=== PATIENT | male | born 1935 | race Hispanic/Latino ===

== ENCOUNTER 2017-12-26 16:40 | Emergency (ER) | payer MEDICARE ==
--- NOTE | 2017-12-26 17:12 | C.PDOC ---
History Of Present Illness <Christina Early - Last Filed: 12/26/17 19:08> <Hayden Maher - Last Filed: 12/26/17 21:15> 82 y/o male with Hx of HTN and cholesterol presents to ED for complaints of right lower abdominal pain that began 4 days ago. Denies nausea, vomiting, diarrhea, dysuria, or allergies to any medications or food. Patient also states he is on blood thinner medication(eliquis). PMD: Israel Carlson (Christina Early) History Per: Patient History/Exam Limitations: no limitations Onset/Duration Of Symptoms: Days (4) Current Symptoms Are (Timing): Still Present Location Of Pain/Discomfort: RLQ Radiation Of Pain To:: None Quality Of Discomfort: "Pain" Associated Symptoms: denies: Fever, Chills, Nausea, Vomiting, Diarrhea, Back Pain, Chest Pain, Urinary Symptoms Exacerbating Factors: None Alleviating Factors: None Last Bowel Movement: Today Recent travel outside of the [place]: No <Christina Early - Last Filed: 12/26/17 19:08> <Hayden Maher - Last Filed: 12/26/17 21:15> Time Seen by Provider: 12/26/17 17:05 Chief Complaint (Nursing): Abdominal Pain Past Medical History Reviewed: Historical Data, Nursing Documentation, Vital Signs - Medical History PMH: HTN, Hypercholesterolemia Family History: States: No Known Family Hx - Social History Hx Alcohol Use: No Hx Substance Use: No - Immunization History Hx Tetanus Toxoid Vaccination: No Hx Influenza Vaccination: Yes Hx Pneumococcal Vaccination: Yes <Christina Early - Last Filed: 12/26/17 19:08> Vital Signs: Last Vital Signs Temp 98.0 F 12/26/17 20:02 Pulse 86 12/26/17 20:02 Resp 19 12/26/17 20:02 BP 155/89 H 12/26/17 20:02 Pulse Ox 95 12/26/17 20:02 Review Of Systems Constitutional: Negative for: Fever, Chills Gastrointestinal: Positive for: Abdominal Pain (RLQ). Negative for: Nausea, Vomiting, Diarrhea Genitourinary: Negative for: Dysuria Skin: Negative for: Rash Neurological: Negative for: Weakness, Numbness <Christina Early - Last Filed: 12/26/17 19:08> Physical Exam - Physical Exam Appears: Non-toxic, No Acute Distress Skin: Warm, Dry Head: Atraumatic, Normacephalic Eye(s): bilateral: Normal Inspection, PERRL, EOMI Oral Mucosa: Moist Neck: Supple Chest: Symmetrical, No Tenderness Cardiovascular: Rhythm Regular, No Murmur Respiratory: Normal Breath Sounds, No Decreased Breath Sounds, No Rales, No Rhonchi, No Wheezing Gastrointestinal/Abdominal: Soft, Tenderness (RLQ), No Guarding, Rebound Extremity: Normal ROM, No Deformity Extremity: Bilateral: Atraumatic, Normal Color And Temperature, Normal ROM Pulses: Left Radial: Normal, Right Radial: Normal Neurological/Psych: Oriented x3 (Awake and alert), Normal Speech (Speaking in full sentences ), Other (No focal deficits ) Gait: Steady <Christina Early - Last Filed: 12/26/17 19:08> ED Course And Treatment - Laboratory Results Result Diagrams: 12/26/17 17:55 12/26/17 17:55 O2 Sat by Pulse Oximetry: 97 (RA) Pulse Ox Interpretation: Normal Progress Note: Administered Morphine and IV fluids. Ordered blood work and CT abdomen/Pelvis. <Christina Early - Last Filed: 12/26/17 19:08> - Laboratory Results Result Diagrams: 12/26/17 17:55 12/26/17 17:55 Pulse Ox Interpretation: Normal Reevaluation Time: 21:12 Reassessment Condition: Improved <Hayden Maher - Last Filed: 12/26/17 21:15> Disposition - Disposition Disposition Time: 19:09 <Christina Early - Last Filed: 12/26/17 19:08> Counseled Patient/Family Regarding: Studies Performed, Diagnosis, Need For Followup, Rx Given <Hayden Maher - Last Filed: 12/26/17 21:15> - Disposition Referrals: Israel Ny MD [Staff Provider] - Disposition: HOME/ ROUTINE Condition: STABLE Additional Instructions: Please return if symptoms recur Prescriptions: Metronidazole [Flagyl] 500 mg PO TID #21 tablet Instructions: Acute Abdomen (Belly Pain), Adult (DC), Diverticulosis (DC), Hiatal Hernia (DC) Forms: [employer] (Persian) - Clinical Impression Clinical Impression: Abdominal pain, Epiploic appendagitis, Diverticulosis, Esophageal hiatal hernia - PA / FIELD [employer]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 - Scribe Statement The provider has reviewed the documentation as recorded by the Scribe <Christina Early - Last Filed: 12/26/17 19:08> <Hayden Maher - Last Filed: 12/26/17 21:15> - Scribe Statement Jose Diggs All medical record entries made by the Scribe were at my direction and personally dictated by me. I have reviewed the chart and agree that the record accurately reflects my personal performance of the history, physical exam, medical decision making, and the department course for this patient. I have also personally directed, reviewed, and agree with the discharge instructions and disposition. (Christina Early) Physician Patient Turnover Patient Signed Over To: Hayden Maher Handoff Comments: CT abd pelvis <Christina Early - Last Filed: 12/26/17 19:08>
[2017-12-26] MEDS ORDERED: Sodium Chloride 0.9% 500 ML IV STA (17:30)
[2017-12-26] MEDS ORDERED: Iohexol 240 (50 ml) PO STA (17:30)
[2017-12-26] MEDS ORDERED: Sodium Chloride 0.9% 1,000 ML ONE (17:45)
[2017-12-26] MEDS ORDERED: Iohexol 240 (50 ml) ONE (17:58)
[2017-12-26 18:01] LABS: BASO # 0.1 K/uL (0.0-0.2); BASO % 1.1 % (0.0-2.0); EOS # 0.1 K/uL (0.0-0.7); HEMOGLOBIN 14.9 g/dL (12.0-18.0); LYMPH # 0.8 K/uL (1.0-4.3); LYMPH % 8.4 % (20.0-40.0); MEAN CORPUSCULAR HEMOGLOBIN 30.9 pg (27.0-31.0); MEAN CORPUSCULAR HGB CONC 35.1 g/dL (33.0-37.0); MONO # 0.7 K/uL (0.0-0.8); MONO % 7.6 % (0.0-10.0); NEUT # 7.6 K/uL (1.8-7.0); NEUT % 81.9 % (50.0-75.0); NRBC % 0.1 % (0.0-2.0); PLATELET COUNT 317 K/uL (130-400); RED CELL DISTRIBUTION WIDTH 13.6 % (11.5-14.5); WHITE BLOOD COUNT 9.2 K/uL (4.8-10.8)
[2017-12-26 18:09] LABS: INR 1.2; PROTHROMBIN TIME 12.9 SECONDS (9.7-12.2)
[2017-12-26 18:12] LABS: ALB/GLOB RATIO 1.1 (1.0-2.1); ALT/SGPT 22 U/L (21-72); AST/SGOT 26 U/L (17-59); BLOOD UREA NITROGEN 12 mg/dL (9-20); CALCIUM 8.6 mg/dl (8.6-10.4); GFR AFRICAN-AMERICAN > 60; GFR NON-AFRICAN AMERICAN > 60; LIPASE 51 U/L (23-300)
[2017-12-26 18:32] LABS: EOSINOPHIL 2 % (0-4); LYMPHOCYTE 8 % (20-40); MONOCYTE 8 % (0-10); NEUTROPHIL 82 % (50-75); PLATELET ESTIMATE NORMAL (NORMAL); TOTAL CELLS COUNTED 100
[2017-12-26] MEDS ORDERED: Iodixanol 320 MG/ML 100 ML BOTTLE IV ONE (18:39)
[2017-12-26] MEDS ORDERED: Piperacillin/Tazobact 3.375 gm 100 ML IVPB STA (21:04)
[2017-12-26] MEDS ORDERED: Piperacillin/Tazobact 3.375 gm 100 ML IVPB ONE (21:10)
[2017-12-26 22:35] VITALS: BP 144/94; PULSE 71; RESP 20; TEMP 98.1; O2SAT 97
--- NOTE | 2017-12-27 13:08 | CT ---
PROCEDURE: CT abdomen pelvis 12/26/2017 HISTORY: RLQ abdominal pain COMPARISON: Comparison made with abdominal radiograph dated 02/16/2012. TECHNIQUE: Contiguous helical/transaxial sections of the abdomen pelvis performed following oral and intravenous injection of approximately 100 cc Visipaque 320 contrast material. Additional 2D sagittal and coronal reformats generated. Radiation dose: Total exam DLP = 759.93 mGy-cm. This CT exam was performed using one or more of the following dose reduction techniques: Automated exposure control, adjustment of the mA and/or kV according to patient size, and/or use of iterative reconstruction technique. . FINDINGS: LOWER THORAX: There appears be minor linear atelectasis right medial lung base. Minor passive atelectasis both posterior lower lung zones. There is tiny subpleural calcified nodule left lingular region likely representing small calcified granuloma. . Mild emphysematous changes. Passive atelectasis both posterior lower lung zones right greater than left. Heart is enlarged. No significant pericardial effusion. There is a moderate - large size hiatal hernia. LIVER: Liver exhibits normal size. There is a tiny approximately 5 mm elliptical shaped low-attenuation focus superior aspect left lobe liver too small characterize. Could represent cyst or hemangioma. . Followup CT scan recommended. Mild fatty hepatic infiltration. Portal and splenic veins are opacified. GALLBLADDER AND BILE DUCTS: Gallbladder is physiologically distended. There is irregular wall thickening of the proximal gallbladder wall nonspecific. Rule out polyps however the possibility of other invasive gallbladder wall lesion not excluded. Clinical correlation recommended. No definitive evidence of intraluminal gallbladder calculi. PANCREAS: Pancreas is atrophic and fatty replaced. No obvious pancreatic mass collection or calcification. SPLEEN: Un spleen exhibits normal size and attenuation pattern without mass collection or calcification. . ADRENALS: [id number] enlarged nodular left adrenal gland. Mild nodular enlarged right adrenal gland. KIDNEYS AND URETERS: Kidneys demonstrate symmetric nephrograms. No evidence of nephrolithiasis or hydronephrosis. Large partially exophytic cyst arising from the anteromedial upper/midpole right kidney measuring approximately 5.7 x 4.0 cm. Bilateral extrarenal pelves. VASCULATURE: Un no evidence of abdominal aortic or iliac artery aneurysms. BOWEL: Evaluation of the bowel is somewhat limited due to incomplete opacification. As mentioned above, there is a moderate to large size hiatal hernia containing the superior aspect of the stomach. Visualized loops of small bowel exhibit normal contour and caliber. No evidence of small bowel tethering. No evidence of acute mechanical small bowel obstruction with oral contrast material extending into the colon to the level of the proximal sigmoid. . Multiple colonic diverticular are seen throughout the sigmoid descending and to a lesser degree transverse colon. Few scattered right-sided colonic diverticula present. There is a localized area of somewhat round/elliptical shaped infiltration/inflammation within the mesentery abutting the anterior margin of cecum that is of uncertain etiology though most likely represents epiploic appendagitis or other fat necrosis. Acute diverticulitis would be less likely though not completely excluded. Follow-up CT scan at interval recommended to assess resolution. . No significant mural wall thickening. APPENDIX: Normal-appearing appendix. PERITONEUM: Small fat containing umbilical hernias. . No evidence of free intraperitoneal air. No free or loculated fluid collections. LYMPH NODES: Unremarkable. No enlarged lymph nodes. Small fat containing bilateral inguinal hernias. BLADDER: Urinary bladder incompletely distended which in part accounts for thick-walled appearance. Muscular hypertrophy presumably contributes. REPRODUCTIVE: Prostate gland is enlarged measuring approximately 4.7 cm in transverse dimension. Scattered prostatic calcifications are present. BONES: Minor multilevel degenerative spondylosis of the lower thoracic and lumbar spine. OTHER FINDINGS: None. IMPRESSION: Diffuse diverticulosis involving the entire colon though most severely affecting the sigmoid, descending and transverse the colon in decreasing order of severity. Less significant diverticulosis of right colon however there is an area of what probably represents either fat necrosis or epiploica appendagitis anterior to the cecum. . Atypical diverticulitis less likely though not completely excluded. Recommend follow-up CT scan at interval to assess resolution. Mild fatty hepatic infiltration. Tiny low-attenuation focus left lobe liver small characterize though this could represent cyst or hemangioma. Followup triple phase CT scan of the liver could be performed for further evaluation. . Irregular nodular appearing gallbladder wall of uncertain etiology. Findings could represent gallbladder polyps however other invasive gallbladder wall lesion not excluded recommend followup ultrasound. Right renal cyst. Enlarged prostate gland. Moderate moderate to large-sized hiatal hernia.
== END 2017-12-26 22:15 | disposition home or self-care (01) ==
LOC: C.ER 16:40
DX: K57.30 Diverticulosis of large intestine without perforation or abscess without bleeding (principal); K63.89 Other specified diseases of intestine; K44.9 Diaphragmatic hernia without obstruction or gangrene; R10.31 Right lower quadrant pain
CPT/HCPCS: 74177; 80053; 83690; 85025; 85610; 85730; 96365; 99285; J2543; J7040; Q9966; Q9967

== ENCOUNTER 2018-02-17 17:53 | Inpatient (IN) | payer MEDICARE, OTHER ==
[2018-02-17 18:05] VITALS: BMI 24.8
--- NOTE | 2018-02-17 19:55 | C.PDOC ---
History Of Present Illness 82 year old male presents to the emergency department with complaints of right knee pain and redness worsening over the last 24-36 hours. Patient denies trauma , fever, chills, nausea or vomiting. He reports pain with ambulation. Time Seen by Provider: 02/17/18 19:55 Chief Complaint (Nursing): Lower Extremity Problem/Injury History Per: Patient History/Exam Limitations: no limitations Onset/Duration Of Symptoms: Hrs (24-36) Current Symptoms Are (Timing): Worse Severity: Moderate Pain Scale Rating Of: 4 Past Medical History Reviewed: Historical Data, Nursing Documentation, Vital Signs Vital Signs: Last Vital Signs Temp 98.2 F 02/17/18 18:05 Pulse 89 02/17/18 18:05 Resp 18 02/17/18 18:05 BP 146/104 H 02/17/18 18:05 Pulse Ox 98 02/17/18 23:02 - Medical History PMH: Arthritis, HTN, Hypercholesterolemia Surgical History: No Surg Hx Family History: States: No Known Family Hx - Social History Hx Alcohol Use: No Hx Substance Use: No - Immunization History Hx Tetanus Toxoid Vaccination: No Hx Influenza Vaccination: Yes Hx Pneumococcal Vaccination: Yes Review Of Systems Constitutional: Negative for: Fever, Chills Gastrointestinal: Negative for: Nausea, Vomiting Musculoskeletal: Positive for: Leg Pain (right knee) Skin: Positive for: Other (right knee redness) Physical Exam - Physical Exam Appears: Non-toxic, No Acute Distress Skin: Warm, Dry, Other (erythema at the right knee, with red streaks going towards the calf. ) Head: Normacephalic Eye(s): bilateral: Normal Inspection Oral Mucosa: Moist Neck: Trachea Midline, Supple Chest: Symmetrical, No Tenderness Cardiovascular: Rhythm Regular, No Murmur Respiratory: No Rales, No Rhonchi, No Wheezing Extremity: Tenderness (right knee tenderness on active and passive movement), Capillary Refill (< 2 seconds), Swelling (right knee), Other (minimal ballottement) Pulses: Left Dorsalis Pedis: Normal, Right Dorsalis Pedis: Normal Neurological/Psych: Oriented x3 ED Course And Treatment - Laboratory Results Result Diagrams: 02/17/18 20:28 02/17/18 20:28 O2 Sat by Pulse Oximetry: 98 (RA) Pulse Ox Interpretation: Normal - CT Scan/US Knee Other Rad Studies (CT/US): Read By Radiologist, Radiology Report Reviewed CT/US Interpretation: IMPRESSION: No evidence of acute fracture. Patella guillermo and lateral subluxation. Anterior knee soft tissue edema, which could reflect cellulitis/prepatellar bursitis versus contusion. Clinical correlation recommended. Progress Note: Plan: Venous Blood Gas. CT Knee. CMP. CBC. PTT. Prothrombin Time. Ancef 2000mg. NaCl IV Fluids. Vancomycin 1gm. Blood Culture Disposition Discussed With Dr.: Israel Ny Comment: accepted the pt on his service and took over the care at 10:49PM Doctor Will See Patient In The: Hospital Counseled Patient/Family Regarding: Studies Performed, Diagnosis - Disposition Disposition: HOSPITALIZED Disposition Time: 19:55 Condition: FAIR Forms: [employer] (Greenlandic) - POA Present On Arrival: Poor Glycemic Control - Clinical Impression Clinical Impression: Cellulitis of knee, right, Knee pain, acute, Ambulatory dysfunction - Scribe Statement The provider has reviewed the documentation as recorded by the Scribe (Ramon Azul) Provider Attestation: All medical record entries made by the Scribe were at my direction and personally dictated by me. I have reviewed the chart and agree that the record accurately reflects my personal performance of the history, physical exam, medical decision making, and the department course for this patient. I have also personally directed, reviewed, and agree with the discharge instructions and disposition. Decision To Admit - Pt Status Changed To: Hospital Disposition Of: Inpatient - Admit Certification Admit to Inpatient:: After my assessment, the patient will require hospitalization for at least two midnights. This is because of the severity of symptoms shown, intensity of services needed, and/or the medical risk in this patient being treated as an outpatient. - InPatient: Physician Admission Certification: I certify that this patient requires 2 or more midnights of care for the following reason:: After my assessment, the patient will require hospitalization for at least two midnights. This is because of the severity of symptoms shown, intensity of services needed, and/or the medical risk in this patient being treated as an outpatient. - . Bed Request Type: Regular Admitting Physician: Israel Ny Patient Diagnosis: Cellulitis of knee, right, Knee pain, acute, Ambulatory dysfunction
[2018-02-17] MEDS ORDERED: Vancomycin 1 GM 1 GM/250 ML BAG IVPB SCH (20:15)
[2018-02-17 20:31] LABS: BASO # 0.1 K/uL (0.0-0.2); BASO % 1.1 % (0.0-2.0); EOS # 0.1 K/uL (0.0-0.7); EOS % 0.4 % (0.0-4.0); HEMOGLOBIN 16.3 g/dL (12.0-18.0); LYMPH # 0.9 K/uL (1.0-4.3); LYMPH % 6.6 % (20.0-40.0); MEAN CELL VOLUME 89.8 fL (80.0-94.0); MEAN CORPUSCULAR HEMOGLOBIN 31.1 pg (27.0-31.0); MEAN CORPUSCULAR HGB CONC 34.6 g/dL (33.0-37.0); MEAN PLATELET VOLUME 7.5 fL (7.2-11.7); MONO # 1.1 K/uL (0.0-0.8); MONO % 8.3 % (0.0-10.0); NEUT # 11.1 K/uL (1.8-7.0); NEUT % 83.6 % (50.0-75.0); PLATELET COUNT 243 K/uL (130-400); RBC 5.24 Mil/uL (4.40-5.90); RED CELL DISTRIBUTION WIDTH 15.1 % (11.5-14.5); WHITE BLOOD COUNT 13.3 K/uL (4.8-10.8)
[2018-02-17 20:41] LABS: INR 1.2
[2018-02-17 20:44] LABS: CALCIUM 9.6 mg/dl (8.6-10.4); GFR AFRICAN-AMERICAN > 60; GFR NON-AFRICAN AMERICAN > 60
[2018-02-17 20:45] LABS: ALB/GLOB RATIO 1.1 (1.0-2.1); ALBUMIN 4.3 g/dL (3.5-5.0); ALT/SGPT 27 U/L (21-72); AST/SGOT 27 U/L (17-59); BLOOD UREA NITROGEN 19 mg/dL (9-20)
[2018-02-17] MEDS: Sodium Chloride 0.9% 1,000 ML IV SCH (20:53)
[2018-02-17 21:01] LABS: VENOUS BLOOD GAS BASE EXCESS 1.2 mmol/L (0.0-2.0); VENOUS BLOOD GAS PCO2 50 mmHg (40-60); VENOUS BLOOD GAS PO2 18 mm/Hg (30-55); VENOUS BLOOD PH 7.35 (7.32-7.43)
[2018-02-17] MEDS ORDERED: Vancomycin 1 GM 1 GM/250 ML BAG IVPB STA (21:03)
[2018-02-17] MEDS ORDERED: Vancomycin 1 gm/NS 200 ml 1 GM/200 ML BAG IVPB STA (21:06)
[2018-02-17 22:01] LABS: LYMPHOCYTE 7 % (20-40); MONOCYTE 2 % (0-10); NEUTROPHIL 91 % (50-75); TOTAL CELLS COUNTED 100
[2018-02-17 22:02] LABS: PLATELET ESTIMATE NORMAL (NORMAL)
[2018-02-18] MEDS: Acetaminophen-Codeine 300/30 mg Tab PO PRN ×2 (01:28→21:54)
[2018-02-18] MEDS ORDERED: Acetaminophen-Codeine 300/30 mg Tab PO ONE (01:40)
[2018-02-18] MEDS: Sodium Chloride 0.9% 1,000 ML IV SCH ×3 (05:17→18:25)
[2018-02-18 08:23] VITALS: RESP 20
[2018-02-18] MEDS: Metoprolol Succinate 25 mg XL Tab PO SCH (09:47)
[2018-02-18] MEDS ORDERED: Home Med 1 UNIT (Atorvastatin Calcium [Atorvastatin Calcium] 20 MG) PO SCH (10:00)
[2018-02-18] MEDS ORDERED: BENAZEPRIL PO SCH (10:00)
[2018-02-18] MEDS ORDERED: AMLODIPINE BESYLATE PO SCH (10:00)
[2018-02-18] MEDS: ceFAZolin IV 1 gm in Dextrose 1 GM/50 ML BAG IVPB SCH ×2 (12:59→19:30)
--- NOTE | 2018-02-19 01:21 | HP ---
Copied To: Israel Ny MD Attending MD: Israel Ny HISTORY OF PRESENT ILLNESS: An 82-year-old gentleman was brought in with painful right knee. The patient was seen in the office and subsequently sent to the ER, who was found to have possible cellulitis. Possibility of knee cellulitis was also suspected. The patient has a longstanding history of hypertension, dilated LV. Also, he is anemic. His medications at home include metoprolol, lisinopril, Celebrex, Eliquis 5 mg p.o. twice a day, metformin 500 mg one a day. The patient has a chronic AFib. He was doing well up until a day before when he started to have painful right knee, came to the office and was sent to the ER. PAST MEDICAL HISTORY: History of surgery for the left shoulder for the fracture and still has a restricted movement, history of hypertension, and chronic atrial fibrillation. PERSONAL HISTORY: Does not smoke. Does not drink. ALLERGIES: DENIED. FAMILY HISTORY: Negative for premature coronary artery disease. REVIEW OF SYSTEMS: Generalized weakness is noted. He was noted to have fever and chills. No headaches. Occasional dizziness. No visual disturbances. Denies any chest pain. Shortness of breath on exertion is noted. No hematemesis. No melena. Pain in the left shoulder and the right knee. No TIAs. No CVA. No urinary complaints. No hematuria. No depression. No strokes. Memory is intact. PHYSICAL EXAMINATION GENERAL: Elderly gentleman appears chronically sick, but is in no acute distress. VITAL SIGNS: His blood pressure is 163/83, heart rate of 80, respiratory rate 20, and afebrile. HEENT: Head is normocephalic. Eyes; no pallor, no icterus. Mouth, absence of a lot of teeth. NECK: Supple. LUNGS: Clear to auscultation. CARDIOPULMONARY: PMI is not localized. S1, S2 is irregular. No definite gallops. ABDOMEN: Soft, nontender. EXTREMITIES: No cyanosis, clubbing, or edema. MUSCULOSKELETAL: Right knee has mildly painful motion with redness and tenderness is noted. Left shoulder has restricted motion. LABORATORY DATA: His white count was elevated to 13.3. BUN is 19 and creatinine 0.9. Electrolytes were normal. INR is 1.2. Hemoglobin is 16.3. ASSESSMENT: An 82-year-old gentleman with history of chronic atrial fibrillation has presented due to the painful right knee, possible superficial cellulitis, cannot rule out septic arthritis. PLAN: IV antibiotics, ID consultation. CT of the knee was done. The reports are pending. Care of plan was explained to the patient. Israel Ny MD
[2018-02-19] MEDS: ceFAZolin IV 1 gm in Dextrose 1 GM/50 ML BAG IVPB SCH ×2 (03:30→11:43)
[2018-02-19] MEDS: Sodium Chloride 0.9% 1,000 ML IV SCH ×2 (04:49→06:11)
--- NOTE | 2018-02-19 08:26 | CT ---
Date of service: 02/17/2018 PROCEDURE: CT of the right knee without contrast HISTORY: swelling, tender, redness COMPARISON: No prior similar study available for comparison. TECHNIQUE: Axial and reformatted coronal and sagittal CT images of the right knee were obtained without IV contrast administration. Total exam DLP: 320.92 FINDINGS: There is no evidence of acute fracture. The patella is seen at high position suggestive of patella at the there is also lateral subluxation of the patella relative to the femoral bone. There is also mild anterior subluxation of the femoral relative to the tibia noted. Mild to moderate osteoarthritic changes noted. There is with defined sclerotic lesion at the lateral aspect of the proximal right tibia measures 0.7 centimeter likely represent benign bone island. Punctate sclerotic changes are also noted at the distal femur likely benign. No evidence of destructive bony lesion. There is no evidence of significant joint effusion. There is a could tennis and subcutaneous soft tissue swelling and stranding seen in the anterior aspect of the right knee anterior to the patella may represent infectious process such as cellulitis and subcutaneous inflammatory changes versus posttraumatic changes. No evidence of soft tissue pneumatosis. No evidence of discrete fluid collection in this noncontrast study. Widening and abnormal appearance of the ACL noted. The PCL appears intact. Vascular calcification noted also around the right knee. IMPRESSION: No evidence of acute fracture. Patella Cherie and lateral subluxation of the patella. Soft tissue swelling in the anterior aspect of the knee may represent cellulitis/prepatellar bursitis versus posttraumatic edema. Preliminary report was submitted by [facility].
[2018-02-19] MEDS: Metoprolol Succinate 25 mg XL Tab PO SCH (09:40)
--- NOTE | 2018-02-19 13:29 | CP.PCM.CON ---
History of Present Illness - History of Present Illness History of Present Illness: 82 year old male presents to the emergency department with complaints of right knee pain and redness worsening over the last 24-36 hours. Patient denies trauma , fever, chills, nausea or vomiting. He reports pain with ambulation. referred for ID eval of cellulitis / bursitis right knee denies fever + painful swelling - Medical History PMH: Arthritis, HTN, Hypercholesterolemia, Diabetes Surgical History: No Surg Hx Family History: States: No Known Family Hx Review of Systems - Review of Systems All systems: reviewed and no additional remarkable complaints except - Constitutional Constitutional: As Per HPI - EENT Eyes: absent: As Per HPI, Blind Spots, Blurred Vision, Change in Vision, Decreased Night Vision, Diplopia, Discharge, Dry Eye, Exophthalmos, Floaters, Irritation, Itchy Eyes, Loss of Peripheral Vision, Pain, Photophobia, Requires Corrective Lenses, Sees Flashes, Spots in Vision, Tunnel Vision, Other Visual Disturbances, Loss of Vision, Other Ears: absent: As Per HPI, Decreased Hearing, Ear Discharge, Ear Pain, Tinnitus, Abnormal Hearing, Disequilibrium, Dizziness, Other Nose/Mouth/Throat: absent: As Per HPI, Epistaxis, Nasal Congestion, Nasal Discharge, Nasal Obstruction, Nasal Trauma, Nose Pain, Post Nasal Drip, Sinus Pain, Sinus Pressure, Bleeding Gums, Change in Voice, Dental Pain, Dry Mouth, Dysphagia, Halitosis, Hoarsness, Lip Swelling, Mouth Lesions, Mouth Pain, Odynophagia, Sore Throat, Throat Swelling, Tongue Swelling, Facial Pain, Neck Pain, Neck Mass, Other - Cardiovascular Cardiovascular: absent: As Per HPI, Acrocyanosis, Chest Pain, Chest Pain at Rest , Chest Pain with Activity, Claudication, Diaphoresis, Dyspnea, Dyspnea on Exertion, Edema, Irregular Heart Rhythm, Pain Radiating to Arm/Neck/Jaw, Leg Edema, Leg Ulcers, Lightheadedness, Orthopnea, Palpitations, Paroxysmal Nocturnal Dyspnea, Pedal Edema, Radiating Pain, Rapid Heart Rate, Slow Heart Rate, Syncope, Other - Respiratory Respiratory: absent: As Per HPI, Cough, Dyspnea, Hemoptysis, Dyspnea on Exertion , Wheezing, Snoring, Stridor, Pain on Inspiration, Chest Congestion, Excessive Mucous Production, Change in Mucous Color, Pain with Coughing, Other - Gastrointestinal Gastrointestinal: absent: As Per HPI, Abdominal Pain, Belching, Bloating, Change in Bowel Habits, Change in Stool Character, Coffee Ground Emesis, Constipation, Cramping, Diarrhea, Dyspepsia, Dysphagia, Early Satiety, Excessive Flatus, Fecal Incontinence, Heartburn, Hematemesis, Hematochezia, Loose Stools, Melena, Nausea, Odynophagia, Temesmus, Vomiting, Other - Genitourinary Genitourinary: absent: As Per HPI, Change in Urinary Stream, Difficulty Urinating, Dysuria, Flank Pain, Hematuria, Pyuria, Nocturia, Urinary Incontinence, Urinary Frequency, Urinary Hesitance, Urinary Urgency, Voiding Freq/Small Amts, Freq UTI, Hx Renal/Bladder Calculi, Hx /Renal Surgery, Bladder Distension, Other - Musculoskeletal Musculoskeletal: absent: As Per HPI, Abnormal Gait, Arthralgias, Atrophy, Back Pain, Deformity, Joint Swelling, Limited Range of Motion, Loss of Height, Muscle Cramps, Muscle Weakness, Myalgias, Neck Pain, Numbness, Radiating Pain into Limb, Stiffness, Tingling, Other - Integumentary Integumentary: As Per HPI, Skin Pain, Swelling - Neurological Neurological: absent: As Per HPI, Abnormal Gait, Abnormal Hearing, Abnormal Movements, Abnormal Speech, Behavioral Changes, Burning Sensations, Confusion, Convulsions, Disequilibrium, Dizziness, Numbness, Focal Weakness, Frequent Falls , Headaches, Lack of Coordination, Loss of Vision, Memory Loss, Paresthesias, Radicular Pain, Restless Legs, Sensory Deficit, Syncope, Tingling, Tremor, Vertigo, Weakness, Other Visual Disturbances, Other - Psychiatric Psychiatric: absent: As Per HPI, Abnormal Sleep Pattern, Anhedonia, Anxiety, Auditory Hallucinations, Behavioral Changes, Change in Appetite, Change in Libido, Confusion, Depression, Difficulty Concentrating, Hallucinations, Homicidal Ideation, Hopelessness, Irritability, Memory Loss, Mood Swings, Panic Attacks, Paranoia, Suicidal Ideation, Visual Hallucinations, Tactile Hallucinations, Other - Endocrine Endocrine: absent: As Per HPI, Change in Body Appearance, Change in Libido, Cold Intolorance, Deepening of Voice, Excessive Sweating, Fatigue, Flushing, Heat Intolorance, Increase in Ring/Shoe/Hat Size, Palpitations, Polydipsia, Polyphagia, Polyuria, Other - Hematologic/Lymphatic Hematologic: absent: As Per HPI, Easy Bleeding, Easy Bruising, Lymphadenopathy, Other Past Patient History - Past Medical History & Family History Past Medical History?: Yes - Past Social History Smoking Status: Never Smoked - CARDIAC Hx Cardiac Disorders: Yes Hx Hypercholesterolemia: Yes Hx Hypertension: Yes - PULMONARY Hx Respiratory Disorders: No - NEUROLOGICAL Hx Neurological Disorder: No - HEENT Hx HEENT Problems: No - RENAL Hx Chronic Kidney Disease: No - ENDOCRINE/METABOLIC Hx Endocrine Disorders: Yes Hx Diabetes Mellitus Type 2: Yes - HEMATOLOGICAL/ONCOLOGICAL Hx Blood Disorders: No - INTEGUMENTARY Hx Dermatological Problems: No - MUSCULOSKELETAL/RHEUMATOLOGICAL Hx Falls: No - GASTROINTESTINAL Hx Gastrointestinal Disorders: No - GENITOURINARY/GYNECOLOGICAL Hx Genitourinary Disorders: No - PSYCHIATRIC Hx Substance Use: No - SURGICAL HISTORY Hx Surgeries: Yes Hx Cardiac Catheterization: Yes Hx Orthopedic Surgery: Yes (left shoulder) - ANESTHESIA Hx Anesthesia: Yes Hx Anesthesia Reactions: No Hx Malignant Hyperthermia: No Has any member of the family had a problem w/ anesthesia?: No Meds Allergies/Adverse Reactions: Allergies Allergy/AdvReac Type Severity Reaction Status Date / Time No Known Allergies Allergy Verified 02/17/18 18:05 - Medications Medications: Current Medications Acetaminophen/Codeine Phosphate (Tylenol/Codeine 300 Mg/30 Mg) 1 ea PO TID PRN PRN Reason: Pain Last Admin: 02/18/18 21:54 Dose: 1 ea Amlodipine Besylate (Norvasc) 2.5 mg PO DAILY [facility] Last Admin: 02/19/18 09:41 Dose: 2.5 mg Apixaban (Eliquis) 2.5 mg PO BID [facility] Celecoxib (Celebrex) 100 mg PO DAILY [facility] Last Admin: 02/19/18 09:40 Dose: 100 mg Enalapril Maleate (Vasotec) 5 mg PO DAILY [facility] Last Admin: 02/19/18 09:40 Dose: 5 mg Sodium Chloride (Sodium Chloride 0.9%) 1,000 mls @ 100 mls/hr IV .Q10H [facility] Last Admin: 02/19/18 06:11 Dose: 100 mls/hr Cefazolin Sodium/Dextrose (Ancef Iv 1 Gm Duplex) 1 gm in 50 mls @ 100 mls/hr IVPB Q8H [facility] PRN Reason: Protocol Last Admin: 02/19/18 11:43 Dose: 100 mls/hr Metformin HCl (Glucophage Xr) 500 mg PO DAILY [facility] Last Admin: 02/19/18 09:40 Dose: 500 mg Metoprolol Succinate (Toprol Xl) 25 mg PO DAILY [facility] Last Admin: 02/19/18 09:40 Dose: 25 mg Rosuvastatin Calcium (Crestor) 5 mg PO HS [facility] Last Admin: 02/18/18 21:55 Dose: 5 mg Physical Exam - Constitutional Appears: No Acute Distress, Chronically Ill - Head Exam Head Exam: ATRAUMATIC, NORMOCEPHALIC - Eye Exam Eye Exam: PERRL. absent: Scleral icterus - ENT Exam ENT Exam: Mucous Membranes Dry, Normal External Ear Exam - Neck Exam Neck exam: Negative for: Lymphadenopathy - Respiratory Exam Respiratory Exam: Decreased Breath Sounds - Cardiovascular Exam Cardiovascular Exam: REGULAR RHYTHM - GI/Abdominal Exam GI & Abdominal Exam: Distended, Soft. absent: Tenderness - Rectal Exam Rectal Exam: Deferred - Exam Exam: NORMAL INSPECTION - Extremities Exam Extremities exam: Positive for: pedal pulses present. Negative for: calf tenderness, pedal edema, tenderness Additional comments: + prepatellar swellling left leg no joint effusion + bursa swelling - Back Exam Back exam: absent: CVA tenderness (L), CVA tenderness (R) - Neurological Exam Neurological exam: Alert, CN II-XII Intact, Oriented x3, Reflexes Normal - Psychiatric Exam Psychiatric exam: Normal Mood - Skin Skin Exam: Dry, Erythema, Intact, Warm Results - Vital Signs Recent Vital Signs: Last Vital Signs Temp 97.5 F L 02/19/18 07:00 Pulse 65 02/19/18 07:00 Resp 20 02/19/18 07:00 BP 151/88 H 02/19/18 09:40 Pulse Ox 96 02/19/18 07:00 - Labs Result Diagrams: 02/17/18 20:28 02/17/18 20:28 Assessment & Plan (1) Cellulitis of knee, right Status: Acute (2) Knee pain, acute Status: Acute - Assessment and Plan (Free Text) Assessment: cont iv rx for right knee cellulitis
[2018-02-20 00:51] VITALS: PULSE 64; TEMP 97.8; O2SAT 93
[2018-02-20 06:41] LABS: BASO # 0.1 K/uL (0.0-0.2); BASO % 0.7 % (0.0-2.0); EOS # 0.1 K/uL (0.0-0.7); EOS % 1.4 % (0.0-4.0); HEMOGLOBIN 14.2 g/dL (12.0-18.0); LYMPH # 0.8 K/uL (1.0-4.3); LYMPH % 8.8 % (20.0-40.0); MEAN CELL VOLUME 88.6 fL (80.0-94.0); MEAN CORPUSCULAR HEMOGLOBIN 30.6 pg (27.0-31.0); MEAN CORPUSCULAR HGB CONC 34.5 g/dL (33.0-37.0); MEAN PLATELET VOLUME 7.5 fL (7.2-11.7); MONO # 0.8 K/uL (0.0-0.8); NEUT % 80.1 % (50.0-75.0); PLATELET COUNT 195 K/uL (130-400); RBC 4.65 Mil/uL (4.40-5.90); RED CELL DISTRIBUTION WIDTH 14.8 % (11.5-14.5); WHITE BLOOD COUNT 8.8 K/uL (4.8-10.8)
[2018-02-20 07:00] LABS: ALB/GLOB RATIO 1.1 (1.0-2.1); ALBUMIN 3.4 g/dL (3.5-5.0); ALT/SGPT 19 U/L (21-72); AST/SGOT 16 U/L (17-59); BLOOD UREA NITROGEN 13 mg/dL (9-20); CALCIUM 8.5 mg/dl (8.6-10.4); GFR AFRICAN-AMERICAN > 60; GFR NON-AFRICAN AMERICAN > 60
[2018-02-20 08:58] LABS: EOSINOPHIL 2 % (0-4); LYMPHOCYTE 10 % (20-40); MONOCYTE 8 % (0-10); NEUTROPHIL 80 % (50-75); TOTAL CELLS COUNTED 100
[2018-02-20 08:59] LABS: PLATELET ESTIMATE NORMAL (NORMAL)
[2018-02-20] MEDS: Metoprolol Succinate 25 mg XL Tab PO SCH (09:34)
[2018-02-20 09:35] VITALS: BP 150/80
--- NOTE | 2018-02-20 12:24 | CP.PCM.PN ---
Subjective - Date & Time of Evaluation Date of Evaluation: 02/20/18 Time of Evaluation: 07:00 - Subjective Subjective: doing ok cellutis better Objective - Vital Signs/Intake and Output Vital Signs (last 24 hours): Temp Pulse Resp BP Pulse Ox 97.8 F 64 20 150/80 93 L 02/19/18 23:34 02/19/18 23:34 02/19/18 23:34 02/20/18 09:34 02/19/18 23:34 Intake and Output: 02/20/18 02/20/18 06:59 18:59 Intake Total 1000 Output Total 1500 Balance -500 - Medications Medications: Current Medications Acetaminophen/Codeine Phosphate (Tylenol/Codeine 300 Mg/30 Mg) 1 ea PO TID PRN PRN Reason: Pain Last Admin: 02/18/18 21:54 Dose: 1 ea Amlodipine Besylate (Norvasc) 2.5 mg PO DAILY [facility] Last Admin: 02/20/18 09:34 Dose: 2.5 mg Apixaban (Eliquis) 2.5 mg PO BID [facility] Last Admin: 02/20/18 09:34 Dose: 2.5 mg Celecoxib (Celebrex) 100 mg PO DAILY [facility] Last Admin: 02/20/18 09:34 Dose: 100 mg Enalapril Maleate (Vasotec) 5 mg PO DAILY [facility] Last Admin: 02/20/18 09:34 Dose: 5 mg Cefazolin Sodium 2 gm/ (Dextrose) 50 mls @ 100 mls/hr IVPB Q8H [facility] PRN Reason: Protocol Last Admin: 02/20/18 03:06 Dose: 100 mls/hr Metformin HCl (Glucophage Xr) 500 mg PO DAILY [facility] Last Admin: 02/20/18 09:34 Dose: 500 mg Metoprolol Succinate (Toprol Xl) 25 mg PO DAILY [facility] Last Admin: 02/20/18 09:34 Dose: 25 mg Rosuvastatin Calcium (Crestor) 5 mg PO HS [facility] Last Admin: 02/19/18 21:44 Dose: 5 mg - Labs Labs: 02/20/18 06:34 02/20/18 06:34 PT 13.0 SECONDS (9.7-12.2) H 02/17/18 20:28 INR 1.2 02/17/18 20:28 APTT 32 SECONDS (21-34) 02/17/18 20:28 - Constitutional Appears: No Acute Distress - Head Exam Head Exam: NORMOCEPHALIC - Eye Exam Eye Exam: absent: Scleral icterus - ENT Exam ENT Exam: Mucous Membranes Dry - Neck Exam Neck Exam: absent: Thyromegaly - Respiratory Exam Respiratory Exam: Decreased Breath Sounds, Clear to Ausculation Bilateral - Cardiovascular Exam Cardiovascular Exam: +S1, +S2 - GI/Abdominal Exam GI & Abdominal Exam: Distended - Rectal Exam Rectal Exam: Deferred - Exam Exam: NORMAL INSPECTION - Extremities Exam Extremities Exam: absent: Pedal Edema - Back Exam Back Exam: absent: CVA tenderness (L), CVA tenderness (R) Assessment and Plan (1) Cellulitis of knee, right Status: Acute (2) Knee pain, acute Status: Acute - Assessment and Plan (Free Text) Plan: po keflex on discharge
--- NOTE | 2018-02-21 10:27 | DS ---
HOSPITAL COURSE : An 82-year-old gentleman who was brought in with a history of cellulitis of the right knee. The patient was admitted. CAT scan had shown bursitis versus cellulitis. The patient was given IV antibiotics. The patient did well, he is afebrile, swelling and redness has decreased. At this point, we will discharge him on Keflex 500 mg p.o. three times a day . He will return to see me in one week's time. Return to emergency room p.r.n. The patient has pain medication. He has chronic AFib, on Eliquis. FINAL DIAGNOSES: 1. Cellulitis of the right knee. 2. History of hypertension and chronic atrial fibrillation. The patient was seen by Dr. Chiu. Israel Ny MD
== END 2018-02-20 13:11 | disposition home or self-care (01) | DRG 603 ==
LOC: C.ER 17:53 → C.6T 22:46 → C.9E 22:46
PROVIDERS: ADMIT Internal Medicine Cardiovascular Disease; ATTEND Internal Medicine Cardiovascular Disease
DX: L03.115 Cellulitis of right lower limb (principal); I48.2 Chronic atrial fibrillation; I10 Essential (primary) hypertension; E78.00 Pure hypercholesterolemia, unspecified; E11.9 Type 2 diabetes mellitus without complications; Z79.84 Long term (current) use of oral hypoglycemic drugs

== ENCOUNTER 2018-09-14 17:25 | Emergency (ER) | payer MEDICARE ==
[2018-09-14 17:26] VITALS: BMI 24.8
[2018-09-14 17:45] VITALS: TEMP 97.3
[2018-09-14] MEDS ORDERED: Labetalol 5 mg/ml Inj 20ML IV STA (18:08)
[2018-09-14 18:29] LABS: BASO # 0.2 K/uL (0.0-0.2); BASO % 1.8 % (0.0-2.0); EOS # 0.1 K/uL (0.0-0.7); EOS % 1.4 % (0.0-4.0); LYMPH # 1.3 K/uL (1.0-4.3); LYMPH % 14.3 % (20.0-40.0); MEAN CORPUSCULAR HEMOGLOBIN 31.4 pg (27.0-31.0); MEAN CORPUSCULAR HGB CONC 34.1 g/dL (33.0-37.0); MEAN PLATELET VOLUME 7.5 fL (7.2-11.7); MONO # 0.6 K/uL (0.0-0.8); MONO % 6.7 % (0.0-10.0); NEUT # 6.8 K/uL (1.8-7.0); NEUT % 75.8 % (50.0-75.0); RBC 5.57 Mil/uL (4.40-5.90); RED CELL DISTRIBUTION WIDTH 13.7 % (11.5-14.5)
--- NOTE | 2018-09-14 18:34 | RAD ---
HISTORY: SOB COMPARISON: Lung bases on CT abdomen and pelvis with contrast performed 12/26/17 TECHNIQUE: Chest, one view. FINDINGS: LUNGS: Retrocardiac opacity consistent with large hiatal hernia. No focal consolidation. Please note that chest x-ray has limited sensitivity for the detection of pulmonary masses. PLEURA: No significant pleural effusion identified. No definite pneumothorax . CARDIOVASCULAR: Cardiomegaly. Dense atherosclerotic calcifications of the aortic knob. OSSEOUS STRUCTURES: Partially obscured left shoulder arthroplasty. VISUALIZED UPPER ABDOMEN: Unremarkable. OTHER FINDINGS: None. IMPRESSION: Retrocardiac opacity consistent with large hiatal hernia. Cardiomegaly.
[2018-09-14 18:39] LABS: HEMOGLOBIN 17.5 g/dL (12.0-18.0); MEAN CELL VOLUME 91.9 fL (80.0-94.0)
[2018-09-14 18:44] LABS: ALB/GLOB RATIO 1.3 (1.0-2.1); ALBUMIN 4.8 g/dL (3.5-5.0); ALT/SGPT 19 U/L (21-72); AST/SGOT 30 U/L (17-59); BLOOD UREA NITROGEN 14 mg/dL (9-20); CALCIUM 9.5 mg/dl (8.6-10.4); GFR NON-AFRICAN AMERICAN > 60
--- NOTE | 2018-09-14 18:47 | C.PDOC ---
History Of Present Illness 83 y/o male presents to the ED for evaluation of elevated blood pressure. He denies having any chest pain, SOB, or palpitations. States he is compliant with BP meds, however his pressure has remained elevated despite taking meds. Patient reports he tried to call his doctor today, but PMD is on vacation until October. He denies any recent change in medication. Otherwise he has no headache, double or blurry vision, dizziness, nausea, vomiting, cough, or fever. Time Seen by Provider: 09/14/18 18:01 Chief Complaint (Nursing): High Blood Pressure History Per: Patient History/Exam Limitations: no limitations Onset/Duration Of Symptoms: Days Current Symptoms Are (Timing): Still Present Quality Of Symptoms: Asymptomatic Exacerbating Factor(s): Pos: None Neg: Recently Missed Doses Of Medication, Recent Change In Medication Past Medical History Reviewed: Historical Data, Nursing Documentation, Vital Signs Vital Signs: Last Vital Signs Temp 97.3 F L 09/14/18 17:35 Pulse 79 09/14/18 17:35 Resp 18 09/14/18 17:35 BP 180/111 H 09/14/18 17:35 Pulse Ox 96 09/14/18 17:35 - Medical History PMH: Arthritis, HTN, Hypercholesterolemia Denies: Chronic Kidney Disease Other Surgeries: Cardiac catheterization, Left arm surgery Family History: States: Unknown Family Hx - Social History Hx Tobacco Use: No Hx Alcohol Use: No Hx Substance Use: No - Immunization History Hx Tetanus Toxoid Vaccination: No Hx Influenza Vaccination: Yes Hx Pneumococcal Vaccination: Yes Review Of Systems Constitutional: Positive for: Other (Elevated blood pressure). Negative for: Fever, Chills Eyes: Negative for: Vision Change Cardiovascular: Negative for: Chest Pain, Palpitations Respiratory: Negative for: Cough, Shortness of Breath Gastrointestinal: Negative for: Nausea, Vomiting Musculoskeletal: Negative for: Back Pain Neurological: Negative for: Weakness, Headache, Dizziness Physical Exam - Physical Exam Appears: Non-toxic, No Acute Distress Skin: Normal Color, Warm, No Rash Head: Atraumatic, Normacephalic Eye(s): bilateral: Normal Inspection, PERRL, EOMI Oral Mucosa: Moist Neck: Normal ROM Chest: Symmetrical Cardiovascular: Rhythm Regular, No Murmur Respiratory: Normal Breath Sounds, No Rales, No Rhonchi, No Wheezing Gastrointestinal/Abdominal: Soft, No Tenderness, No Distention Extremity: Bilateral: Atraumatic, Normal Color And Temperature, Normal ROM Pulses: Left Radial: Normal, Right Radial: Normal Neurological/Psych: Oriented x3, Normal Speech, Normal Cranial Nerves, Other (No focal deficit) Gait: Steady ED Course And Treatment - Laboratory Results Result Diagrams: 09/14/18 18:25 09/14/18 18:25 Lab Results: Total Bilirubin 2.2 mg/dL (0.2-1.3) H 09/14/18 18:25 AST 30 U/L (17-59) 09/14/18 18:25 ALT 19 U/L (21-72) L 09/14/18 18:25 Alkaline Phosphatase 85 U/L (38-126) 09/14/18 18:25 Total Protein 8.4 g/dL (6.3-8.3) H 09/14/18 18:25 Albumin 4.8 g/dL (3.5-5.0) 09/14/18 18:25 Globulin 3.6 gm/dL (2.2-3.9) 09/14/18 18:25 Albumin/Globulin Ratio 1.3 (1.0-2.1) 09/14/18 18:25 ECG: Interpreted By Al ECG Rhythm: Atrial Fibrillation (Rate-controlled A Fib) Interpretation Of ECG: Normal intervals, normal axis, nonspecific T wave changes Rate From EC O2 Sat by Pulse Oximetry: 96 (RA) Pulse Ox Interpretation: Normal - Other Rad CXR X-Ray: Read By Radiologist Interpretation: Accession No. : [id number]. Patient Name / ID : MABLE NORIEGA / [id number]. Exam Date : 09/14/2018 18:18:16 ( Approved ). Study Comment : Sex / Age : M / [id number]. Creator : Yudelka Onofre MD. Dictator : Yudelka Onofre MD. Pharmacy Innovation Assistant : Sewing Room Supervisor : Yudelka Onofre MD. Approver2 : Report Date : 09/14/2018 18:30:57. My Comment : . HISTORY: SOB. COMPARISON: Lung bases on CT abdomen and pelvis with contrast performed 12/26/17. TECHNIQUE: Chest, one view. FINDINGS: LUNGS: Retrocardiac opacity consistent with large hiatal hernia. No focal consolidati on. Please note that chest x-ray has limited sensitivity for the detection of pulmonary masses. PLEURA: No significant pleural effusion identified. No definite pneumothorax . CARDIOVASCULAR: Cardiomegaly. Dense atherosclerotic calcifications of the aortic knob. OSSEOUS STRUCTURES: Partially obscured left shoulder arthroplasty. VISUALIZED UPPER ABDOMEN: Unremarkable. OTHER FINDINGS: None. IMPRESSION: Retrocardiac opacity consistent with large hiatal hernia. Cardiomegaly. Medical Decision Making Medical Decision Making: Impression: High blood pressure Plan: - Blood work - EKG - CXR - 20 mg IV Labetalol - Reassess Labs and imaging reviewed. 1935 On re-evaluation patient reports he feels better. Repeat BP: 140/80 Patient is resting comfortably, VSS, stable for discharge home. Advised patient to follow up with PMD for adjustment of blood pressure meds. Patient verbalizes understanding and agreement with plan. Disposition Counseled Patient/Family Regarding: Studies Performed, Diagnosis, Need For Followup - Disposition Referrals: Israel Ny MD [Staff Provider] - Disposition: HOME/ ROUTINE Disposition Time: 19:37 Condition: STABLE Additional Instructions: follow up with your doctor within 2 days call to make an appointment continue your home blood pressure medications return to ER if symptoms worsens or progress Instructions: High Blood Pressure in Adults Forms: [facility] (Mongolian), General Discharge Instructions - Clinical Impression Clinical Impression: High blood pressure - Scribe Statement The provider has reviewed the documentation as recorded by the Israel Whatley Provider Attestation: All medical record entries made by the Rommelibdwaine were at my direction and person ally dictated by me. I have reviewed the chart and agree that the record accurately reflects my personal performance of the history, physical exam, medical decision making, and the department course for this patient. I have also personally directed, reviewed, and agree with the discharge instructions and disposition.
[2018-09-14] MEDS ORDERED: Labetalol 5mg/ml (4ml) IV STA (18:51)
[2018-09-14 18:56] LABS: B-TYPE NATRIURETIC PEPTIDE 752 pg/mL (0-900)
[2018-09-14] MEDS ORDERED: Labetalol 5mg/ml (4ml) ONE (19:02)
[2018-09-14 19:42] VITALS: RESP 16
[2018-09-14 20:42] VITALS: BP 154/88; PULSE 60
[2018-09-14 23:21] VITALS: O2SAT 96
--- NOTE | 2018-09-16 08:09 | CARD ---
APPROVED REPORT Date of service: 09/14/2018 EKG Measurement Heart [id number] <Conclusion> Atrial fibrillation ST & T wave abnormality, consider anterolateral ischemia Prolonged QT Abnormal ECG
== END 2018-09-14 20:38 | disposition home or self-care (01) ==
LOC: C.ER 17:25
DX: I10 Essential (primary) hypertension (principal)